=== PATIENT | male | born 2005 | race African-American/Black ===

== ENCOUNTER 2023-09-01 19:48 | Emergency (ER) | payer OTHER ==
[2023-09-01] MEDS ORDERED: BACITRACIN ZINC OINT 1 PACKET TOP STA (20:50)
[2023-09-01] MEDS ORDERED: lidocaine 1% 20 ML MDV SUBQ ONE (20:50)
--- NOTE | 2023-09-01 20:50 | ED Physician Documentation ---
History of Present Illness - Stated complaint Stated Complaint: LT FINGER INJ - Chief complaint Chief Complaint: Laceration - Additonal information Additional information: He smashed his left small finger at the gym between the weights. Reports tetanus is up-to-date. [id number] Review of Systems Musculoskeletal: reports: Joint pain PD PAST MEDICAL HISTORY - Present Medications Home Medications: Ambulatory Orders Medication Instructions Recorded Confirmed HYDROcod/ACETAM 5/325 [Davis 5/325] 1 tablet PO BID PRN #10 tablet 09/01/23 cephALEXin [Keflex] 500 mg PO TID #21 cap 09/01/23 - Allergies Allergies/Adverse Reactions: Allergies Allergy/AdvReac Type Severity Reaction Status Date / Time No Known Drug Allergies Allergy Verified 09/01/23 20:11 PD ED PE EXPANDED - Extremities Extremities: Left finger(s) (Left small finger with a laceration horizontal dorsum distal tip that extends through the nailbed. Neurovascular intact. Preserved flexion extension at DIP joint.) Results - Vitals Vitals: Vital Signs - 24 hr 09/01/23 20:06 Temperature 36.7 C Heart Rate 89 Respiratory 18 Rate Blood Pressure 125/75 O2 Saturation 98 Oxygen O2 Source Room air - Rads (name of study) left finger Relevant Findings:: EMP independent interpretation of test (Distal phalanx fracture) Procedures - Laceration (location) left small finger Length in cm: 1.7 Wound type: Linear, Into muscle Tendon involvement: Tendon intact Anesthesia: Lidocaine 1% Wound preparation: Chlorhexadine, Irrigated copiously NS Skin layer closure: Nylon, Interrupted, Size #-0 - enter number (4), Sutures - enter # (5) Other: Tetanus UTD PD Medical Decision Making - ED course Complexity details: reviewed results, d/w patient ED course: The x-ray of your finger shows a tuft fracture to the distal phalanx. The laceration we did go through your nailbed and we placed a total of 5 sutures in the finger splinting the nailbed together. This should be removed in about 10 days. [place] directed. I am writing a limited prescription of Davis and opiate for severe pain only. 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 Return to the ER for any new or worsening symptoms. Your suture(s) should be removed in 10 days. In 24 hours you may remove the dressing wash gently with warm soap and water, apply any antibiotic ointment and a simple bandage. Your tetanus is up-to-date. Please attempt to keep your wound clean and dry. Do not submerge it in dirty dishwater or bath water. Return to the emergency department if you have any concerns of infection such as redness, fevers milky drainage increased pain. Departure - Departure Instructions: ED Fx Finger Open Prescriptions: cephALEXin [Keflex] 500 mg PO TID #21 cap HYDROcod/ACETAM 5/325 [Davis 5/325] 1 tablet PO BID PRN #10 tablet PRN Reason: Pain Forms: PCP List
[2023-09-01] MEDS ORDERED: ceFAZolin 1 GM VIAL IM STA (20:58)
--- NOTE | 2023-09-01 21:15 | XRAY Report ---
PROCEDURE: Finger(s) LT INDICATIONS: L finger crush injury TECHNIQUE: AP hand, 2 views of the fifth finger(s) acquired. COMPARISON: None. FINDINGS: Bones: Minimally displaced fifth distal phalangeal tuft fracture. Soft tissues: No suspicious calcifications. IMPRESSION: Fifth distal phalangeal tuft fracture. Reviewed by: Bobby Alcaraz MD on 09/01/2023 9:14 PM PDT Approved by: Bobby Alcaraz MD on 09/01/2023 9:14 PM PDT Station ID: [id number]
[2023-09-01 21:45] VITALS: BP 125/66; O2SAT 100
== END 2023-09-01 21:41 | disposition home or self-care (01) ==
LOC: ED 19:48
DX: S62.637B Displaced fracture of distal phalanx of left little finger, initial encounter for open fracture (principal); W23.1XXA Caught, crushed, jammed, or pinched between stationary objects, initial encounter; Y92.838 Other recreation area as the place of occurrence of the external cause
CPT/HCPCS: 12001; 73140; 99283; A9270